=== PATIENT | male | born 1960 | race Caucasian/White ===

== ENCOUNTER 2016-12-05 13:57 | Inpatient (IN) | payer SELFPAY ==
[~2016-12-05] VITALS: Ht 162.6 cm; Wt 86.3 kg
[2016-12-05] MEDS ORDERED: SODIUM CHLORIDE 0.9% 1L BAG IV* STA (14:38)
[2016-12-05] MEDS ORDERED: IBUPROFEN 600 MG TAB PO ONE (15:00)
[2016-12-05] MEDS ORDERED: CEFTRIAXONE 1 GM/50 ML (PMX) 50 ML IVPB ONE (15:00)
[2016-12-05] MEDS ORDERED: LIDOCAINE 1% (MDV) 20 ML INJ SC ONE (15:00)
[2016-12-05 15:01] LABS: ADD UMIC YES; URINE BILIRUBIN (Dip) NEGATIVE (NEGATIVE); URINE BLOOD (Dip) TRACE (NEGATIVE); URINE COLOR LT. YELLOW (YELLOW); URINE GLUCOSE (Dip) NEGATIVE (NEGATIVE); URINE KETONES (Dip) NEGATIVE (NEGATIVE); URINE LEUKOCYTE ESTERASE (Dip) NEGATIVE (NEGATIVE); URINE NITRITE (Dip) NEGATIVE (NEGATIVE); URINE TOTAL PROTEIN (Dip) 2+ (NEGATIVE); URINE UROBILINOGEN (Dip) 0.2 E.U./dL (0.1-1.0)
[2016-12-05 15:06] LABS: ADD SCAN DIFF NO
--- NOTE | 2016-12-05 15:07 | RADRPT ---
PROCEDURE: XR Chest 1 View. CLINICAL INDICATION: Chest pain TECHNIQUE: AP view of the chest was obtained. COMPARISON: October 30, 2007 FINDINGS: The heart size is within normal limits. Calcified atherosclerosis is noted in the aorta. Scattered subsegmental atelectasis is identified in the bilateral lower lobes. The osseous structures appear i ntact. Degenerative changes are seen in both shoulders. IMPRESSION: Calcified atherosclerosis in the aorta. Scattered subsegmental atelectasis in the bilateral lower lobes. RPTAT: AA .Broderick Jacob MD, Date Time Electronically viewed and signed by .Broderick Jacob MD, on 12/05/2016 15:06 .P/
[2016-12-05 15:08] LABS: BASOPHILS % 0.1 % (0.0-2.0); EOSINOPHILS % 0.5 % (0.0-7.0); HEMATOCRIT 42.8 % (42.0-52.0); HEMOGLOBIN 14.2 g/dl (14.0-18.0); LYMPHOCYTES # 0.7 10^3/ul (0.8-2.9); LYMPHOCYTES % 8.6 % (15.0-51.0); MEAN CORPUSCULAR HEMOGLOBIN 29.6 pg (29.0-33.0); MEAN CORPUSCULAR HGB CONC 33.2 g/dl (32.0-37.0); MEAN CORPUSCULAR VOLUME 89.2 fl (82.0-101.0); MEAN PLATELET VOLUME 9.4 fl (7.4-10.4); MONOCYTE # 0.2 10^3/ul (0.3-0.9); MONOCYTES % 2.1 % (0.0-11.0); NEUTROPHIL # 7.2 10^3/ul (1.6-7.5); NEUTROPHILS % 88.5 % (39.0-77.0); PLATELET COUNT 192 10^3/UL (140-415); RED CELL DISTRIBUTION WIDTH 12.5 % (11.5-14.5); WHITE BLOOD COUNT 8.2 10^3/ul (4.8-10.8)
[2016-12-05 15:14] LABS: URINE RBCS 0-2 /HPF (0)
[2016-12-05 15:23] LABS: INR 0.91; PARTIAL THROMBOPLASTIN TIME 22.3 Sec (25.0-35.0); PROTIME 12.2 Sec (12.2-14.2)
[2016-12-05 15:26] LABS: ALANINE AMINOTRANSFERASE 51 IU/L (13-69); ALBUMIN/GLOBULIN RATIO 1.17; ALKALINE PHOSPHATASE 75 IU/L (42-121); ANION GAP 13 (8-16); ASPARTATE AMINO TRANSFERASE 33 IU/L (15-46); BILIRUBIN,INDIRECT 0.6 mg/dl (0-1.1); BILIRUBIN,TOTAL 0.6 mg/dl (0.2-1.3); BLOOD UREA NITROGEN 15 mg/dl (7-20); CALCIUM 9.2 mg/dl (8.4-10.2); CARBON DIOXIDE 25 mmol/L (21-31); CHLORIDE 103 mmol/L (97-110); CREATININE 0.93 mg/dl (0.61-1.24); GLUCOSE 108 mg/dl (70-220); POTASSIUM 4.1 mmol/L (3.5-5.1); SODIUM 137 mmol/L (135-144); TOTAL PROTEIN 7.4 g/dl (6.1-8.1)
[2016-12-05 15:40] LABS: TROPONIN-I < 0.012 ng/ml (0.00-0.12)
--- NOTE | 2016-12-05 15:43 | RADRPT ---
PROCEDURE: CT Abdomen and pelvis without contrast. CLINICAL INDICATION: Abdominal pain. High blood pressure. Fever. TECHNIQUE: CT scan of the abdomen and pelvis with contrast was performed on a multidetector high-r esolution CT scan. . Coronal and sagittal reformatted images were obtained from the axial source i mages. Standard CT scan of the abdomen pelvis without contrast protocols were performed. The total exam CTDI equals 16.4 mGy and the total exam DLP equals 948.27 mGy-cm. One or more of the following dose reduction techniques were used: - Automated exposure control. - Adjustment of the mA and/or kV according to patient size. Use of iterative reconstruction technique. COMPARISON: CT abdomen pelvis with contrast 09/28/2007 FINDINGS: The kidneys are normal in size without evidence of intra renal masses or hydronephrosis bilaterally. There is a 2 mm non-obstructing superior left renal calcified calculus. There are two 2 mm right renal nonobstructing calcified calculi involving the superior and inferior poles. The ureters are u nremarkable. The urinary bladder is partially contracted but otherwise unremarkable. The prostate gland is mildly enlarged impressing the floor in her bladder and recommend PSA levels if clinically indicated for further evaluation. There is diverticular changes involving the hepatic flexure, descending and sigmoid colon but no CT evidence of diverticulitis. The appendix is not fully visualized that there is no CT evidence of ap pendicitis. The stomach and small bowel are unremarkable. The gallbladder is unremarkable and there is no evidence of biliary ductal dilation. The liver sple en pancreas and adrenal glands are unremarkable. Negative for intra-abdominal free air, fluid, abscesses or lymphadenopathy. Lung bases are unremarkable. There are degenerative changes lower thoracic and lumbar spine without acute osseous findings are osteoblastic/osteolytic lesions. The lower thoracic abdominal pelvic wa lls are unremarkable. There is atherosclerotic vascular disease of the aorta but no evidence of ane urysm. IMPRESSION: 1. Bilateral tiny nonobstructing renal calculi. No other urinary calculi or obstructive uropathy. 2. Diverticulosis of the hepatic flexure, descending and sigmoid colon but no CT evidence of divert iculitis. 3. No CT evidence of appendicitis. 4. Negative for intra-abdominal free air fluid abscesses or lymphadenopathy. RPTAT:AAJJ Fidel Julio Physician Date Time Electronically viewed and signed by Fidel Julio Physician on 12/05/2016 15:42 /
[2016-12-05] MEDS ORDERED: VANCOMYCIN 1 GM (PMX) 250 ML IVPB SCH (16:30)
[2016-12-05] MEDS ORDERED: ACYCLOVIR 500 MG in SOD CHLORIDE 0.9% 100 ML IVPB ONE (16:30)
[2016-12-05] MEDS ORDERED: PIPER-TAZO 3.375 GM IV (PMX) 100 ML IVPB ONE (16:30)
[2016-12-05 17:02] LABS: # OF CELLS COUNTED 100
[2016-12-05 17:25] VITALS: TEMP 99.4
--- NOTE | 2016-12-05 17:28 | ERA ---
ER Documentation Chief Complaint Date/Time DATE: 12/05/16 TIME: 17:25 Chief Complaint ap x3 days HPI This is a 56-year-old man complains of mild diffuse upper abdominal pain 3 days as well as mild headache, neck pain, and body aches. He had a high fever today but denies URI symptoms, no sore throat, no dysuria, no cough, no rash. Patient returned from [facility] 3 weeks ago after a 2 week stay. He denies insect or mosquito bites. No camping, no recent antibiotic use, no vomiting or diarrhea, no anorexia, no chest pain or shortness of breath. ROS All systems reviewed and are negative except as per history of present illness. Medications Home Meds No Active Prescriptions or Reported Meds Allergies Allergies: Coded Allergies: No Known Allergy (Unverified , 12/05/16) PMhx/Soc None Medical and Surgical Hx: pt denies Medical Hx, pt denies Surgical Hx Hx Alcohol Use: No Hx Substance Use: No Hx Tobacco Use: No Smoking Status: Former smoker FmHx Family History: No diabetes Physical Exam Vitals Vital Signs Date Time Temp Pulse Resp B/P Pulse Ox O2 Delivery O2 Flow Rate FiO2 12/05/16 15:08 110 18 126/75 90 Room Air 12/05/16 14:03 103.5 122 24 160/90 99 Physical Exam GENERAL: Well-developed, appears dehydrated, febrile, HEENT: Dry mucous membranes, pink conjunctiva, no cervical spine tenderness or step-off deformities, no goiter, no jaundice or icterus, extraocular movements intact without pain. No submandibular induration, and no pharyngeal erythema, no Kernig sign or Brudzinski sign NEURO: Alert and oriented 3, cranial nerves II through XII intact bilaterally, pupils equal round reactive to light, no focal deficits or facial asymmetry, sensation intact distally Strength 5/5 in upper and lower extremities bilaterally CARDIAC: Tachycardic and regular, no murmurs rubs or gallops LUNGS: Clear bilaterally no wheezing crackles or stridor ABDOMEN: Soft nontender, no guarding, no rigidity, no rebound, no psoas sign no obturator sign. Normoactive bowel sounds SKIN: Warm and dry to touch, no abrasions, contusions, or hematomas, no lacerations, no ecchymosis, no target lesions, and without ulcers EXTREMITIES: No clubbing cyanosis or edema, calves are bilaterally symmetrical, no Homans sign, no popliteal cord sign. Distal pulses equal and bilateral PSYCH: Normal affect without agitation or irritability Result Diagram: 12/05/16 1440 12/05/16 1440 Results 24 hrs Laboratory Tests Test 12/05/16 14:40 12/05/16 14:45 12/05/16 16:28 White Blood Count 8.210^3/ul Red Blood Count 4.8010^6/ul Hemoglobin 14.2g/dl Hematocrit 42.8% Mean Corpuscular Volume 89.2fl Mean Corpuscular Hemoglobin 29.6pg Mean Corpuscular Hemoglobin Concent 33.2g/dl Red Cell Distribution Width 12.5% Platelet Count 20501^3/UL Mean Platelet Volume 9.4fl Neutrophils % 88.5% Lymphocytes % 8.6% Monocytes % 2.1% Eosinophils % 0.5% Basophils % 0.1% Nucleated Red Blood Cells % 0.0/100WBC Neutrophils # 7.210^3/ul Lymphocytes # 0.710^3/ul Monocytes # 0.210^3/ul Eosinophils # 0.010^3/ul Basophils # 0.010^3/ul Nucleated Red Blood Cells # 0.010^3/ul Prothrombin Time 12.2Sec Prothrombin Time Ratio 1.0 INR International Normalized Ratio 0.91 Activated Partial Thromboplast Time 22.3Sec Sodium Level 137mmol/L Potassium Level 4.1mmol/L Chloride Level 103mmol/L Carbon Dioxide Level 25mmol/L Anion Gap 13 Blood Urea Nitrogen 15mg/dl Creatinine 0.93mg/dl Glucose Level 108mg/dl Lactic Acid Level 2.6mmol/L Calcium Level 9.2mg/dl Total Bilirubin 0.6mg/dl Direct Bilirubin 0.00mg/dl Indirect Bilirubin 0.6mg/dl Aspartate Amino Transf (AST/SGOT) 33IU/L Alanine Aminotransferase (ALT/SGPT) 51IU/L Alkaline Phosphatase 75IU/L Troponin I < 0.012ng/ml Total Protein 7.4g/dl Albumin 4.0g/dl Globulin 3.40g/dl Albumin/Globulin Ratio 1.17 Lipase 51U/L Urine Color LT. YELLOW Urine Clarity SLIGHTLY CLOUDY Urine pH 6.5 Urine Specific [place] 1.025 Urine Ketones NEGATIVE Urine Nitrite NEGATIVE Urine Bilirubin NEGATIVE Urine Urobilinogen 0.2 E.U./dL Urine Leukocyte Esterase NEGATIVE Urine Microscopic RBC 0-2/HPF Urine Microscopic WBC NONE SEEN/HPF Urine Epithelial Cells RARE Urine Hemoglobin TRACE Urine Glucose NEGATIVE% Urine Total Protein 2+ CSF Tubes Submitted 4 CSF Volume 4.0ml CSF Appearance CLEAR CSF Color COLORLESS CSF WBC 0/uL CSF RBC 0/uL CSF Cell Count Tube # TUBE#4 CSF Total Cells Counted 100 CSF Neutrophils % 0% CSF Lymphocytes % 0% CSF Monocytes % 0% CSF Crenated Cells 0% CSF Glucose 54mg/dl CSF Total Protein 29mg/dl Current Medications Medications (Trade) Dose Ordered Sig/Benny Route PRN Reason Start Time Stop Time Status Last Admin Dose Admin Sodium Chloride 3000 ml 3,000 ml BOLUS OVER 2 HOURS STAT IV* 12/05/16 14:38 12/05/16 14:40 DC 12/05/16 15:00 Ceftriaxone Sodium (Rocephin) 50 ml @ 100 mls/hr ONCE ONCE IVPB 12/05/16 15:00 12/05/16 15:29 DC 12/05/16 14:59 Ibuprofen (Motrin) 600 mg ONCE ONCE PO 12/05/16 15:00 12/05/16 15:01 DC 12/05/16 14:59 Lidocaine 20 ml 20 ml ONCE ONCE SC 12/05/16 15:00 12/05/16 15:01 DC 12/05/16 15:00 Vancomycin HCl 250 ml @ 125 mls/hr ONCE IVPB 12/05/16 16:30 12/05/16 18:29 DC 12/05/16 18:28 Piperacillin Sod/ Tazobactam Sod 100 ml @ 200 mls/hr ONCE ONCE IVPB 12/05/16 16:30 12/05/16 16:59 DC 12/05/16 17:23 Acyclovir/Sodium Chloride (Zovirax/NS) 100 ml @ 100 mls/hr ONCE ONCE IVPB 12/05/16 16:30 12/05/16 17:29 DC Procedures/MDM IV line was established patient was placed on shoe fitter rhythm strip revealed a sinus tachycardia at 110 bpm with upright P and T waves. Patient was febrile. EKG performed, read by me revealed a sinus tachycardia at 112 bpm, normal axis, narrow QRS complex, no concerning ST elevations or depressions noted. One AP view of the chest performed, read by me reveals no acute infiltrates, normal mediastinum, sharp costophrenic and cardiac borders, no air under the diaphragm. Otherwise unremarkable chest x-ray. CT scan of the abdomen and pelvis was performed there was no acute inflammatory infectious pathology noted. I administered 3 L of normal saline intravenously for suspected early sepsis, and ibuprofen 600 mg p.o. for fever. CBC and electrolytes were unremarkable, liver function tests were normal, lactic acid elevated at 2.6, troponin was negative, coagulation profile was unremarkable, urine analysis was negative. Given the patient's high fever, elevated lactic acid level, and negative results I suspect viral illness and with recent travel to [facility] acute viral encephalitis versus bacterial meningitis. I obtained both verbal and written consent and proceeded with lumbar puncture. Lumbar Puncture by me: Patient consented, time out performed, sterilely prepped/draped, anesthetized locally. Anesthesia: 1% lidocaine locally Location: One interspace below the iliac crest Technique: Large gauge needle with stylet for entry and removal of needle Results: Clear CSF fluid No post procedure complications, bleeding, numbness or weakness. I also spoke with Dr. Bartholomew for pathology consultation and ordered diagnostic testing for Dengue virus and Chikungunya, results pending I will follow-up. Patient's infectious symptoms have not stabilized and the patient is at risk of rapid decompensation. The patient will be admitted for careful hydration, antibiotic therapy, and infectious source control. I treated the patient here with ceftriaxone 1 g IV, vancomycin 1 g IV and Zosyn 3.375 g IV. Patient also received acyclovir 500 mg IV. Severe Sepsis Assessment: Infectious Source: Meningitis versus encephalitis Severe Sepsis Managment: Blood Cultures X 2 before broad spectrum antibiotics initiated within 3 hours of recognition. 30 ml/kg NS bolus Completed Initial Lactate: 2. Repeat Lactate 1.8 Critical Care: Time: 45 minutes, this was time separate from other procedures Treatments/Evaluations: Emergent fluid management, while maintaining close respiratory support. Immediate broad spectrum antibiotic therapy. Simultaneous assessment for possible sources in order to direct therapy. Consideration for invasive and chemical support to prevent respiratory or cardiac collapse. Perfusion Reassessment for Septic Shock: Temp afebrile, pulse 80, respiratory rate 18 breaths per minute, blood pressure 120/80 Heart Exam: Regular rate and rhythm Lung Exam: No Crackles Capillary Refill: Less than 2 seconds Peripheral Pulses: Radially present Skin: Warm and dry Hypotensive Treatment (not required for isolated lactic acid elevation): Comfort Care: No Central LIne: Not indicated Vasopressor started: Not indicated I considered further perfusion assessment with CVP measurement, SCVO2, bedside ultrasound volume assessment, passive leg raise, trial of further fluid bolus. And preceded with IV antibiotics, intravenous antivirals, and IV fluids Accepting Care Team: Current data and ongoing care discussed. Time: Time of admission Primary Provider: Hospitalist Consulting: Infectious disease Outstanding Data: none Hepatitis A serology was positive and may explain his presentation and symptomatology. Hepatitis B and C serology pending. Departure Diagnosis: Primary Impression: Sepsis Qualified Code: A41.9 - Sepsis, due to unspecified organism Additional Impressions: Headache Qualified Code: R51 - Acute nonintractable headache, unspecified headache type Acute hepatitis A Condition: NELLY Charles MD December 05, 2016 17:28
[2016-12-05 18:09] VITALS: BP 90/63; PULSE 97; RESP 18
[2016-12-05 18:12] LABS: GLUCOSE,CSF 54 mg/dl (50-80)
[2016-12-05 18:32] LABS: %CREANATED RBC CSF 0 %; CSF COLOR COLORLESS; CSF#TUBE COUNT TUBE#1; CSF#TUBES REC'D 4
[2016-12-05 18:33] LABS: %CREANATED RBC CSF 0 %; CSF COLOR COLORLESS; CSF#TUBE COUNT TUBE#4; CSF#TUBES REC'D 4
[2016-12-05] MEDS ORDERED: ONDANSETRON 4 MG INJ IV PRN (19:00)
[2016-12-05] MEDS ORDERED: morphine 2 MG INJ IV PRN (19:00)
[2016-12-05] MEDS ORDERED: HYDROCODONE/APAP (5/325) TAB PO PRN (19:00)
[2016-12-05] MEDS ORDERED: NACL 0.9% 3 ML SYG IV SCH (19:00)
[2016-12-05] MEDS ORDERED: ZOLPIDEM 5 MG TAB PO PRN (19:00)
[2016-12-05] MEDS ORDERED: DOCUSATE SODIUM 100 MG CAP PO PRN (19:00)
[2016-12-05 20:06] VITALS: Ht 162.6 cm; Wt 86.3 kg
--- NOTE | 2016-12-05 20:16 | HP ---
DATE OF ADMISSION: 12/05/2016 CHIEF COMPLAINT: Abdominal pain, fevers, chills. HISTORY OF PRESENT ILLNESS: The patient is a 56-year-old male with no medical history. The patient presents with several days of abdominal pain, fevers, chills. Denies any nausea, vomiting. Denies any diarrhea or constipation. Denies any sick contacts. He was recently in [facility] 2 weeks ago for 2 weeks and states that when he got back, he was feeling okay. He did state that he had some ne ck stiffness and headache. He did have an LP in the ED, which was negative for any signs of infecti on. The patient states that this headache is now gone and his abdominal pain, which is diffuse thro ughout his mid epigastrium, is now improved. He has no complaints at this time. He has no previous such symptoms in the past. PAST MEDICAL HISTORY: Negative. PAST SURGICAL HISTORY: Negative. HOME MEDICATIONS: None. ALLERGIES: NO KNOWN DRUG ALLERGIES. FAMILY HISTORY: Negative. SOCIAL HISTORY: Denies any alcohol, tobacco, or drug abuse. REVIEW OF SYSTEMS: A 12-point review of system is negative except for that as discussed in HPI. PHYSICAL EXAMINATION: VITAL SIGNS: Temperature is 98.8, T-max 103.5, pulse this time is 97, earlier was 122, respiratory rate 18, BP is 90/63, saturation 93% on room air. GENERAL: No acute distress, alert and oriented. HEENT: Normocephalic, atraumatic. LUNGS: Clear to auscultation. CARDIOVASCULAR: Tachycardic. ABDOMEN: Nondistended, nontender, soft. EXTREMITIES: No clubbing, cyanosis, edema. LABORATORY TESTS: White count 8.2, hemoglobin 14.2, platelets 192. Chemistry within normal limits except for lactic acid slightly elevated at 2.6, now down to 1.8. Lipase is 51. INR is 0.91. UA i s within normal limits except for 2+ protein. Hepatitis panel: Hepatitis B surface antigen is nega tive at this time. The remainder is pending. CSF fluid was within normal limits with 0 WBCs, prote in is within normal limits, and glucose within normal limits. DIAGNOSTICS: Chest x-ray showed calcified atherosclerosis in the aorta with scattered subsegmental atelectasis in the bilateral lower lobes. Abdominal pelvis CT shows tiny nonobstructing renal calcu li, no other urinary calculi or obstructive uropathy. Diverticulosis of the hepatic flexure, descen ding, and sigmoid colon, but no CT evidence of diverticulitis. No CT evidence of appendicitis. Neg ative for intra-abdominal free air, fluid, abscess, or lymphadenopathy. ASSESSMENT AND PLAN: 1. Systemic inflammatory response syndrome, likely secondary to viral syndrome. The patient's feve r and tachycardia are stabilizing with his temperature now normal as well as tachycardia is also imp roving. The source of infection, once again, is likely viral as there is no other clear etiology at this time. CSF fluid was within normal limits. UA is normal. Chest x-ray shows no signs of pneum onia. Abdominal pelvis CT is essentially normal. We will monitor overnight. 2. Lactic acidosis, now resolved. Will check another lactic acid in the a.m. 3. Prophylaxis: Ambulation. Dictated By: JAYSON MURILLO/LIZ Conf#: [id number] DID#: [id number]
[2016-12-06 06:10] LABS: ADD SCAN DIFF NO
[2016-12-06 06:13] LABS: BASOPHILS % 0.1 % (0.0-2.0); EOSINOPHILS % 0.1 % (0.0-7.0); HEMATOCRIT 40.1 % (42.0-52.0); HEMOGLOBIN 13.1 g/dl (14.0-18.0); LYMPHOCYTES # 0.6 10^3/ul (0.8-2.9); LYMPHOCYTES % 6.4 % (15.0-51.0); MEAN CORPUSCULAR HEMOGLOBIN 29.4 pg (29.0-33.0); MEAN CORPUSCULAR HGB CONC 32.7 g/dl (32.0-37.0); MEAN CORPUSCULAR VOLUME 90.1 fl (82.0-101.0); MEAN PLATELET VOLUME 9.6 fl (7.4-10.4); MONOCYTE # 0.5 10^3/ul (0.3-0.9); MONOCYTES % 4.7 % (0.0-11.0); NEUTROPHIL # 8.8 10^3/ul (1.6-7.5); PLATELET COUNT 174 10^3/UL (140-415); RED BLOOD COUNT 4.45 10^6/ul (4.70-6.10); RED CELL DISTRIBUTION WIDTH 12.9 % (11.5-14.5)
[2016-12-06 06:43] LABS: ALBUMIN 3.4 g/dl (3.3-4.9); ALBUMIN/GLOBULIN RATIO 1.06; BILIRUBIN,INDIRECT 0.7 mg/dl (0-1.1); BILIRUBIN,TOTAL 0.7 mg/dl (0.2-1.3); CALCIUM 8.8 mg/dl (8.4-10.2); CHOL/HDL RATIO 5.1 RATIO; CREATININE 1.08 mg/dl (0.61-1.24); MAGNESIUM 1.9 mg/dl (1.7-2.5); PHOSPHORUS 3.4 mg/dl (2.5-4.9); POTASSIUM 4.3 mmol/L (3.5-5.1); TOTAL PROTEIN 6.6 g/dl (6.1-8.1)
[2016-12-06 06:58] LABS: T3 UPTAKE 35.1 % (23.5-40.5)
[2016-12-06 07:49] VITALS: BP 101/62; RESP 18
--- NOTE | 2016-12-06 10:17 | PDOCDIS ---
Discharge Instructions CONDITION Patient Condition: Good HOME CARE INSTRUCTIONS: Diet Instructions: Regular ACTIVITY: Activity Restrictions: No Restrictions FOLLOW UP/APPOINTMENTS Appointments F/U WITH YOUR PCP IN 1-2 WEEKS JAYSON PEERS December 06, 2016 10:17
--- NOTE | 2016-12-06 12:52 | DS ---
DATE OF ADMISSION: 12/05/2016 DATE OF DISCHARGE: 12/06/2016 DISCHARGE DIAGNOSES: 1. Systemic inflammatory response syndrome secondary to viral syndrome, now resolved. Workup was n egative for any acute infection with negative cerebrospinal fluid. Abdominal pelvis CT was negative . Urinalysis and chest x-ray were negative. 2. Lactic acidosis, resolved. HOSPITAL COURSE: The patient is a 56-year-old male with no medical history. The patient presents w ith 2 days of abdominal pain, fever, chills. Patient was noted to have a fever in the ED as well as tachycardia. The patient had no leukocytosis. The patient did have a headache and neck pain, had an LP in the ER which was negative for any infection. He did have an abdominal pelvis CT that showe d no significant findings, only bilateral tiny nonobstructing renal calculi, otherwise no acute find ings. The patient had a chest x-ray that showed only calcified atherosclerosis in the aorta, atelec tasis in bilateral lower lobes, but no other signs of infection. The patient did have a hep panel that was negative except for hep A antibody total was positive. Hep A IgM was nonreactive. The pat ient's urine culture was negative after 24 hours. The patient's symptoms of abdominal pain resolved . Patient was no longer febrile on the day of discharge. Heart rate also normalized. Patient was felt to have had a viral syndrome that was now passing, possibly stomach flu. The patient was fel t to be stable for discharge. On the day of discharge, the patient's vitals, labs, physical exam we re stable. He had no acute complaints. Questions answered. CONDITION ON DISCHARGE: Stable. DISPOSITION: To home. MEDICATIONS: The patient has no reported home medications. No new medications were prescribed. FOLLOWUP: He is to follow up with his PCP in 1 to 2 weeks. Greater than 30 minutes was spent coordinating discharge of patient. Dictated By: JAYSON PERES MD BS/NTS Conf#: [id number] DID#: [id number]
== END 2016-12-06 12:50 | disposition home or self-care (01) | DRG 864 ==
LOC: E/R 13:57 → MS2 16:46
PROVIDERS: ADMIT Internal Medicine; ATTEND Internal Medicine
PROC: 009U3ZX Drainage of Spinal Canal, Percutaneous Approach, Diagnostic (ICD-10-PCS; principal; 2016-12-05)
DX: R50.9 Fever, unspecified (principal); R65.10 Systemic inflammatory response syndrome (SIRS) of non-infectious origin without acute organ dysfunction; B34.9 Viral infection, unspecified; R51 Headache; R10.10 Upper abdominal pain, unspecified; R00.0 Tachycardia, unspecified; M54.2 Cervicalgia
CPT/HCPCS: 36415; 71010; 74176; 80053; 80061; 81001; 81003; 82945; 83036; 83605; 83690; 83735; 84100; 84157; 84166; 84436; 84479; 84484; 85025; 85610; 85730; 86706; 86708; 86709; 86788; 86789; 86803; 87040; 87070; 87086; 87340; 89050; 93005; 96374; J0133; J0696; J2543; J3370; J7030

== ENCOUNTER 2016-12-09 09:47 | Emergency (ER) | payer SELFPAY ==
[~2016-12-09] VITALS: Ht 162.6 cm; Wt 80.0 kg
[2016-12-09 09:52] VITALS: Ht 162.6 cm; Wt 80.0 kg
[2016-12-09] MEDS ORDERED: HYDROCODONE/APAP (5/325) TAB PO ONE (10:30)
--- NOTE | 2016-12-09 11:54 | RADRPT ---
PROCEDURE: CT Brain without contrast. CLINICAL INDICATION: Headaches. Neurologic deficit TECHNIQUE: A CT of the brain was performed on multidetector high-resolution CT scanner utilizing a xial sections from the skull base through the vertex without contrast. One or more of the following dose reduction techniques were used: Automated exposure control, Adjustment of the mA and/or kV acc ording to patient size, and/or use of iterative reconstruction technique. DOSE: CTDI = 45 mGy and the DLP = 720 mGy-cm. COMPARISON: None available FINDINGS: No acute intracranial hemorrhage, significant mass effect or midline shift. Mild prominence of the r ight anterior-lateral temporal extra-axial space with possible adjacent region of right temporal cor tical encephalomalacia. The sosa-white differentiation is otherwise grossly preserved. Prominence of the cortical sulci and ventricles are related to mild cerebral volume loss. No significant opacification of the visualized paranasal sinuses or mastoids. IMPRESSION: No definite acute intracranial findings. Mild prominence of the right anterior-lateral temporal extra-axial space with possible adjacent nery on of right temporal cortical encephalomalacia suggests a sequela of prior trauma. RPTAT: AA .Easton Kaufman MD, Date Time Electronically viewed and signed by .Easton Kaufman MD, MD on 12/09/2016 11:54 .T/
[2016-12-09] MEDS ORDERED: FIORICET PO (12:07)
--- NOTE | 2016-12-09 12:12 | ERD ---
ER Documentation Chief Complaint Date/Time DATE: 12/09/16 TIME: 12:10 Chief Complaint walked into er co tension headache for past 3 days"from backof neck to head HPI This 56-year-old male complains of a headache which is diffuse. Primarily in except that over the last 3 days. History is significant for hospitalization here last week for febrile illness and possible sepsis. Patient had lumbar puncture, CT scan and it was determined that he likely had a viral syndrome. Patient's fever and abdominal pain and additional symptoms have resolved. He is here primarily because of his headache. Denies any visual changes, vomiting , weakness, bowel or bladder incontinence. ROS All systems reviewed and are negative except as per history of present illness. Medications Home Meds Active Scripts Acetamin/Butalbital/Caffeine* (Fioricet*) [id number] Tab, 1 TAB PO Q6H Y for PAIN, #15 TAB Prov:ALEXANDRIA GAITAN MD 12/09/16 Allergies Allergies: Coded Allergies: No Known Allergy (Unverified , 12/05/16) PMhx/Soc History of Surgery: No Anesthesia Reaction: No Hx Neurological Disorder: No Hx Respiratory Disorders: No Hx Cardiac Disorders: No Hx Psychiatric Problems: No Hx Miscellaneous Medical Probl: No (Hepatis A) Hx Alcohol Use: No Hx Substance Use: No Hx Tobacco Use: No Physical Exam Vitals Vital Signs Date Time Temp Pulse Resp B/P Pulse Ox O2 Delivery O2 Flow Rate FiO2 12/09/16 09:52 97.8 63 18 139/85 98 Physical Exam Const: [] Alert, [id number] per Head: Atraumatic Eyes: Normal Conjunctiva. Eyes are PERRLA and extraocular movements intact. ENT: Normal External Ears, Nose and Mouth. Neck: Full range of motion..~ No meningismus. Resp: Clear to auscultation bilaterally Cardio: Regular rate and rhythm, no murmurs Abd: Soft, non tender, non distended. Normal bowel sounds Skin: No petechiae or rashes Back: No midline or flank tenderness Ext: No cyanosis, or edema Neur: Awake and alert. Coronal nerves II through XII grossly intact. Normal gait. Psych: Normal Mood and Affect Results 24 hrs Current Medications Medications (Trade) Dose Ordered Sig/Benny Route PRN Reason Start Time Stop Time Status Last Admin Dose Admin Acetaminophen/ Hydrocodone Bitart (Hampton (5/325)) 1 tab ONCE ONCE PO 12/09/16 10:30 12/09/16 10:31 DC 12/09/16 10:35 Procedures/MDM Patient presents with a headache after hospitalization for febrile illness and abdominal pain diagnosis of viral syndrome. Most of the patient's symptoms appear resolved. His headache is of uncertain etiology but may be residual effects of viral syndrome or possibly even a post spinal headache. Headache appears mild and patient is in no distress acting appropriately. Patient did not have a CT scan here in the ED and a CT brain today shows no acute findings according the radiologist. Patient was given Hampton 5 mg by mouth. Patient shows no signs or symptoms of central lesions, signs or symptoms to suggest meningitis, neurologic deficit, additional emergent causes of headache. We treated with Fioricet, instructions for fluids instructed to follow-up with primary doctor this week or return for fevers, visual changes, vomiting, new worsening symptoms. The patient was stable with no new complaints during the ER course. Clinically, there is no current evidence to suggest meningitis, sepsis, acute abdomen, pneumonia, acute coronary syndrome, pulmonary embolism, or any other emergent condition appearing to require further evaluation or hospitalization. The patient should certainly return for any new or worsening symptoms per the aftercare instructions. They should otherwise follow-up with her primary care doctor for reevaluation this week. Departure Diagnosis: Primary Impression: Headache Headache type: unspecified Headache chronicity pattern: unspecified pattern Intractability: not intractable Qualified Code: R51 - Nonintractable headache, unspecified chronicity pattern, unspecified headache type Condition: Stable Patient Instructions: Headache, Unspecified Additional Instructions: ESTUDIOS NORMAL. CARMEN MUCHO AGUA. Cheque otro vez con tang doctor primario en el proximo schwarz or regresa para mas o nueva simptomas. [place] PARTA CONTINUA MOTRIN 600MG CADA 6 HORAS. ALEXANDRIA GAITAN MD December 09, 2016 12:12
[2016-12-09 12:15] VITALS: BP 125/73; PULSE 70; RESP 18; TEMP 98.2
== END 2016-12-09 12:17 | disposition home or self-care (01) ==
LOC: FTE 09:47
DX: R51 Headache (principal)
CPT/HCPCS: 70450

== ENCOUNTER 2018-04-09 08:29 | Emergency (ER) | END 2018-04-09 10:24 | disposition home or self-care (01) ==